=== PATIENT | female | born 1960 ===

== ENCOUNTER 2017-12-19 05:09 | Day surgery (SDC) | payer OTHER ==
[~2017-12-19 05:09] MED LIST: CRESTOR10 MG PO; LAMICTAL200 M1 PO; LEXAPRO20 MG PO; SIMVASTATIN5 MG PO; SULFADIAZINE500 MG PO; SULFASALAZINE500 MG PO; SYNTHROID112 MCG PO
== END 2017-12-19 09:35 | disposition home or self-care (01) ==
LOC: CIR.AMB 05:09
DX: D21.11 Benign neoplasm of connective and other soft tissue of right upper limb, including shoulder (principal)